=== PATIENT | male | born 1985 | race African-American/Black ===

== ENCOUNTER → 2016-11-06 | Outpatient (CLI) | payer OTHER, MEDICAID | LOC: FIMAGING 16:24 | PROVIDERS: ATTEND Family Medicine Sports Medicine | DX: M25.511 Pain in right shoulder (principal) ==

== ENCOUNTER 2017-03-22 20:37 | Emergency (ER) | payer OTHER, MEDICAID ==
[2017-03-22 20:43] VITALS: RESP 16; O2SAT 95
--- NOTE | 2017-03-22 21:13 | EDPHY ---
H & P Stated Complaint: right calf swelling - Personal History Current Tetanus/Diphtheria Vaccine: Yes Current Tetanus Diphtheria and Acellular Pertussis (TDAP): Yes - Medical/Surgical History Hx Asthma: No Hx Chronic Respiratory Disease: No Hx Diabetes: No Hx Cardiac Disease: No Hx Renal Disease: No Hx Cirrhosis: No Hx Alcoholism: No Hx HIV/AIDS: No Hx Splenectomy or Spleen Trauma: No Other PMH: epilespy - Social History Smoking Status: Never smoked Time Seen by Provider: 03/22/17 20:49 HPI/ROS: CHIEF COMPLAINT: Right calf pain and swelling HISTORY OF PRESENT ILLNESS: 31-year-old immunocompetent male with no history of cutaneous MRSA, no coagulopathic disorder, awoke with right medial calf pain and swelling and tenderness, concerns over possible insect bite. No known trauma. No inguinal adenopathy or pain. No foot drop. No pain with dorsiflexion or plantar flexion. PHYSICAL EXAM (Prior to examination, patient consented to physical exam, hands were washed and my usual and customary physical exam procedures followed) 1) GENERAL: Well-developed, well-nourished, alert and oriented. Appears to be in no acute distress. 2) HEAD: Normocephalic 3) HEENT: sclera anicteric 4) LUNGS: Breathing comfortably. 5) SKIN: Erythema, induration and tenderness to the right medial calf with a central lesion noted. No definitive fluctuance. Soft compartments. 6) MUSCULOSKELETAL: dorsiflexion plantar flexion are intact and do not elicit pain proximally. No lymphangitic streaking. 7) NEUROLOGIC: Full sensation two-point discrimination intact. DP PT pulses present and brisk. DIFFERENTIAL DIAGNOSIS: In no particular order including but not limited to cellulitis, abscess, necrotizing fasciitis, DVT (Reagan,Nahun Patty) Constitutional: Initial Vital Signs Temperature (C) 36.8 C 03/22/17 20:40 Heart Rate 88 03/22/17 20:40 Respiratory Rate 16 03/22/17 20:40 Blood Pressure 163/106 H 03/22/17 20:40 O2 Sat (%) 95 03/22/17 20:40 O2 Delivery Mode Room Air Allergies/Adverse Reactions: No Known Allergies Allergy (Verified 03/22/17 20:43) Home Medications: Medication Instructions Recorded Depakote 07/02/15 LaMICtal 07/02/15 Cephalexin [Keflex] 500 mg PO TID 10 Days cap 03/22/17 Medical Decision Making - Diagnostics Imaging Results: Imaging Impressions Extremity Venous Study 03/22/17 21:02 Impression: No deep venous thrombosis right leg. Right calf cellulitis. Results called to Foreign Kirk PA-C, at 10:10 PM. Images reviewed by myself (Nahun Kirk) ED Course/Re-evaluation: The patient was evaluated and managed by the physician's chemical laboratory assistant. My cosignature indicates that I reviewed the chart and I agree with the findings and plan of care as documented. I am the secondary supervising physician. ( Katina Mccarty) 9:13 p.m.: Will obtain ultrasound to evaluate possible DVT, possible deep space infection/abscess. 10:16 p.m.: Re-evaluation, discussed his imaging results. He has soft compartments. Doubt compartment syndrome. Doubt necrotizing fasciitis. We discussed his findings with systems cellulitis. No history of chronic skin infections or cutaneous MRSA. Plan will be treatment with monotherapy of Keflex. His tetanus is already up-to-date. Recommend elevation, warm packs, follow up with primary care provider in 2 days for recheck. Return sooner should he develop new or worsening symptoms. He feels comfortable being discharged. All questions and concerns addressed by myself. Care of patient under supervision of secondary supervising physician Dr Mccarty . (Nahun Kirk) Departure - Departure Disposition: Home, Routine, Self-Care Clinical Impression: Left calf cellulitis Condition: Good Instructions: Cellulitis (ED), Cephalexin (By mouth) Additional Instructions: Keep warm compresses on the area, keep the area elevated above the level of your hips. Return to the ER immediately if you develop redness going up your legs, if you develop fevers or chills, or any other symptoms that concern you. Referrals: Vincenzo Massey MD [Primary Care Provider] - 1-2 days without fail Prescriptions: Cephalexin [Keflex] 500 mg PO TID 10 Days cap
[2017-03-22] MEDS ORDERED: CEPHALEXIN 500MG PREPACK#4 BTL TAKEHOME ONE (22:18)
[2017-03-22 23:05] VITALS: BP 146/88; PULSE 74; TEMP 98.6
== END 2017-03-22 23:02 | disposition home or self-care (01) ==
DX: L03.115 Cellulitis of right lower limb (principal)